=== PATIENT | female | born 1955 | race Caucasian/White ===

== ENCOUNTER 2018-05-27 01:13 | Inpatient (IN) ==
--- NOTE | 2018-05-27 03:47 | ED ---
HPI General Chief complaint: Skin/Abscess/Foreign Body Stated complaint: Poss Bleeding In throat Time Seen by Provider: 05/27/18 03:24 History of Present Illness HPI narrative: 62-year-old female presents to the emergency department complaint of 2 weeks of sensation of foreign body or gross in her throat. No stridor no hoarseness no shortness of breath. Patient states she feels as if she is having bleeding. Patient denies any injury. Patient denies any sinus drainage or epistaxis. No fever chills. Patient denies sore throat. Patient has history of hypertension and valvular heart disease. Patient takes no blood thinning agents. Patient states that symptoms have escalated over the past 24- 48 hours and she is actually coughed up some blood. No pleuritic chest pain no shortness of breath no chest pain no lower extremity pain or swelling. No history of bronchitis or coagulopathy. Patient denies any known thyroid dysfunction. Patient is currently not on antibiotic. Related Data Allergies Allergy/AdvReac Type Severity Reaction Status Date / Time amoxicillin Allergy Severe Rash Unverified 05/27/18 01:16 clavulanic acid Allergy Severe Rash Unverified 05/27/18 01:16 nifedipine Allergy Severe Flushing Unverified 05/27/18 01:16 Review of Systems ROS: all other systems reviewed are negative PMFSH Medical History Medical History Aortic valve regurgitation (Acute) Hypertension (Acute) Surgical History Surgical History Hx of tonsillectomy (Acute) Social History Social History Substance History: No History of Abuse Second Hand Smoke Exposure: No Smoking Status: Never smoker How Often Do You Have a Drink Containing Alcohol: Monthly or less Recent Travel in [facility] within the Last 8 Weeks: No Immunization History Tetanus Immunization: Unsure Hx Influenza Vaccine This Season: Yes Exam Narrative Exam Narrative: GENERAL: Well-nourished, well-developed patient. SKIN: Focused skin assessment warm/dry. HEAD: Normocephalic. EYES: No scleral icterus. No injection or drainage. ENT: Mucous membranes moist airways patent no posterior pharyngeal drainage is identified no epistaxis NECK: Supple, trachea midline. No JVD or lymphadenopathy. CARDIOVASCULAR: Regular rate and rhythm without murmurs, gallops, or rubs. RESPIRATORY: Breath sounds equal bilaterally. No accessory muscle use. GASTROINTESTINAL: Abdomen soft, non-tender, nondistended. MUSCULOSKELETAL: No cyanosis, or edema. BACK: Nontender without obvious deformity. No CVA tenderness. Course Consultations Consultation #1: discussed with DR Chris rodriguezed with DR Pena Time: 08:21 Initial Documented Vital Signs Temperature 98.0 F 05/27/18 01:16 Pulse Rate 97 H 05/27/18 01:16 Respiratory Rate 16 05/27/18 01:16 Blood Pressure 146/83 H 05/27/18 01:16 Pulse Oximetry 95 05/27/18 01:16 Last Documented Vital Signs Temperature 98.0 F 05/27/18 01:16 Pulse Rate 84 05/27/18 07:33 Respiratory Rate 17 05/27/18 07:33 Blood Pressure 138/76 05/27/18 07:33 Pulse Oximetry 100 05/27/18 07:33 Medical Decision Making [facility] Narrative Medical decision making narrative: 61-year-old female presents with complaint of hemoptysis without pleurisy pleuritic chest pain chest pain or shortness of breath and no history of coagulopathy IV access obtained specimens collected and sent for resulting chest x-ray ordered It is now 7:38 AM lab values resulted CT soft tissue neck also resulted patient is identified to have white count of 13,000 with mild left shift bicarb is 30 no anion gap random glucose is elevated at 211 CT is remarkable for tonsillar and epiglottic thickening concerning for inflammatory versus infectious response unlikely malignancy per reading radiologist. Call has been placed to on-call inker Dr. Perez request patient to be admitted to medicine service with consult to him optimally patient would be started on Unasyn and Decadron. Will need to use caution with steroid therapy in view of elevated glucose patient without history of diabetes per patient's report only hypertension and valvular heart disease. Call placed to [facility] service for admission Patient identified to be allergic to amoxicillin will start patient on clindamycin 900 mg ivpb and given one-time dose of Decadron 6 mg IV Medical Screen Exam Complete: Yes Emergency Medical Condition: Yes Differential Diagnosis Differential Diagnosis: Hemoptysis, bronchitis, PE, soft tissue mass/growth, rhinosinusitis, sinusitis; unlikely retropharyngeal abscess also to consider epiglottitis Medical Records Medical records reviewed: Yes I reviewed the patient's medical records. Lab Data Lab results reviewed: Yes I reviewed the patient's lab results. Result diagrams: 05/27/18 03:45 05/27/18 03:45 Lab Results 05/27/18 05/27/18 05/27/18 Range/Units 03:45 03:45 03:45 WBC 13.1 H (4.0-11.0) th/mm3 RBC 4.19 (4.00-5.30) mil/mm3 Hgb 12.6 (11.6-15.3) gm/dL Hct 36.7 (35.0-46.0) % MCV 87.6 (80.0-100.0) fL MCH 30.1 (27.0-34.0) pg MCHC 34.4 (32.0-36.0) % RDW 13.5 (11.6-17.2) % Plt Count 208 (150-450) th/mm3 MPV 9.0 (7.0-11.0) fL Neut % (Auto) 81.2 H (16.0-70.0) % Lymph % (Auto) 9.6 (9.0-44.0) % [place] % (Auto) 6.1 (0.0-8.0) % Eos % (Auto) 2.8 (0.0-4.0) % Baso % (Auto) 0.3 (0.0-2.0) % Neut # (Auto) 10.7 H (1.8-7.7) th/mm3 Lymph # (Auto) 1.3 (1.0-4.8) th/mm3 [place] # (Auto) 0.8 (0.0-0.9) th/mm3 Eos # (Auto) 0.4 (0.0-0.4) th/mm3 Baso # (Auto) 0.0 (0.0-0.2) th/mm3 WBC Differential . Differential Comment Auto diff final PT 10.3 (9.8-11.6) sec INR 1.0 Ratio APTT 24.8 (24.3-30.1) sec Sodium 143 (136-145) meq/L Potassium 3.7 (3.5-5.1) meq/L Chloride 105 (98-107) meq/L Carbon Dioxide 30.3 (21.0-32.0) meq/L Anion Gap 8 (5-15) meq/L BUN 15 (7-18) mg/dL Creatinine 0.69 (0.50-1.00) mg/dL Estimated GFR 86 L (>89) mL/min Random Glucose 211 H (74-106) mg/dL Calcium 8.4 L (8.5-10.1) mg/dL Imaging Data Radiologist's impression: Chest X-Ray 05/27/18 03:30 CONCLUSION: No evidence of acute cardiopulmonary disease. Soft Tissue Neck CT 05/27/18 04:33 CONCLUSION: 1. Tonsillar and epiglottis thickening, nonspecific. Infectious or inflammatory etiologies would be most likely. Neoplasm in the differential but less likely. 2. No abscess or lymphadenopathy. No perceptible foreign body. Discharge Plan Discharge Disposition Patient Disposition: 30 Still Patient Discharge Condition Condition: Stable Discharge Details Diagnosis: Epiglottic lesion Physicians Team ED Provider: Lindsay Lemon Primary Care Provider: Primary Care Mattie Cottrell Attending Provider: Reagan Pena Discharge Interventions Interventions: Vital Signs Last Done: 05/27/18 07:33 Status ED Status: Admitted Patient
--- NOTE | 2018-05-27 03:56 | XR ---
EXAM DATE: 05/27/2018 3:51 AM EDT AGE/SEX: 62 years / Female INDICATIONS: . Cough, shortness of breath and coughing up blood. CLINICAL DATA: This is the patient's initial encounter. Patient reports that signs and symptoms have been present for 2 weeks and indicates a pain score of 0/10. MEDICAL/SURGICAL HISTORY: None. None. COMPARISON: No prior exams available for comparison. FINDINGS: PA and lateral views of the chest demonstrate the lungs to be symmetrically aerated without evidence of mass, infiltrate or effusion. The cardiomediastinal contours are unremarkable. Osseous structures are intact. CONCLUSION: No evidence of acute cardiopulmonary disease. Electronically signed by: Luke Zuniga MD 05/27/2018 3:55 AM EDT
[2018-05-27 04:11] LABS: Baso % (Auto) 0.3 % (0.0-2.0); Eos # (Auto) 0.4 th/mm3 (0.0-0.4); Eos % (Auto) 2.8 % (0.0-4.0); Hematocrit 36.7 % (35.0-46.0); Hemoglobin 12.6 gm/dL (11.6-15.3); Lymph # (Auto) 1.3 th/mm3 (1.0-4.8); Lymph % (Auto) 9.6 % (9.0-44.0); Mean Corpuscular HGB Conc 34.4 % (32.0-36.0); Mean Corpuscular Hemoglobin 30.1 pg (27.0-34.0); Mean Corpuscular Volume 87.6 fL (80.0-100.0); Mono # (Auto) 0.8 th/mm3 (0.0-0.9); Mono % (Auto) 6.1 % (0.0-8.0); Neut # (Auto) 10.7 th/mm3 (1.8-7.7); Neut % (Auto) 81.2 % (16.0-70.0); Platelet Count 208 th/mm3 (150-450); Red Blood Count 4.19 mil/mm3 (4.00-5.30); Red Cell Distribution Width 13.5 % (11.6-17.2); White Blood Count 13.1 th/mm3 (4.0-11.0)
[2018-05-27 04:24] LABS: Activated Partial Thrombo Time 24.8 sec (24.3-30.1); Prothrombin Time 10.3 sec (9.8-11.6)
[2018-05-27 04:29] LABS: Calcium 8.4 mg/dL (8.5-10.1); Carbon Dioxide 30.3 meq/L (21.0-32.0); Potassium 3.7 meq/L (3.5-5.1)
--- NOTE | 2018-05-27 06:36 | CT ---
EXAM DATE: 05/27/2018 6:26 AM EDT AGE/SEX: 62 years / Female INDICATIONS: Sensation of foreign body in throat for two weeks. Began coughing up blood two days ago . CLINICAL DATA: This is the patient's initial encounter. Patient reports that signs and symptoms have been present for 2 weeks and indicates a pain score of 3/10. MEDICAL/SURGICAL HISTORY: Hypertension. Tonsillectomy. RADIATION DOSE: 16.23 CTDI (mGy) COMPARISON: No prior exams available for comparison. TECHNIQUE: Helical acquisition was performed using a multirow detector CT scanner during the adminis tration of 69 ml Omnipaque 350 (iohexol) nonionic water-soluble contrast as a single exam dose. Usi ng automated exposure control and adjustment of the mA and/or kV according to patient size, radiation dose was kept as low as reasonably achievable to obtain optimal diagnostic quality images. DICOM fo rmat image data is available electronically for review and comparison. FINDINGS: Nasopharynx: The nasopharyngeal airway has a normal configuration. No mucosal thickening or mass is seen. Oropharynx: The intrinsic muscles of the tongue are symmetric. There is diffuse tonsillar and epiglo ttis thickening. Larynx: The supraglottic, glottic, and infraglottic structures are intact. Parapharyngeal: The parapharyngeal space is intact. Salivary Glands: The parotid and submandibular glands are intact. Lymph Nodes: No enlarged or necrotic-appearing nodes. Thyroid: Homogeneous enhancement without evidence of nodule. Bones: Unremarkable. Post Contrast: No abnormal areas of enhancement seen. CONCLUSION: 1. Tonsillar and epiglottis thickening, nonspecific. Infectious or inflammatory etiologies would be most likely. Neoplasm in the differential but less likely. 2. No abscess or lymphadenopathy. No perceptible foreign body. Electronically signed by: Luke Zuniga MD 05/27/2018 6:35 AM EDT
[2018-05-27] MEDS ORDERED: Clindamycin 900 mg/NS Premix 900 MG/50 ML PIGGYBACK IV.SIG ONE (07:45)
[2018-05-27] MEDS ORDERED: Sodium Chlor 0.9% Inj 500 ML IV.SIG SCH (08:00)
[2018-05-27] MEDS ORDERED: Vancomycin Consult Pharmacy OTHER PRN (08:38)
[2018-05-27] MEDS ORDERED: Acetaminophen 325 MG Tablet PO PRN (08:40)
[2018-05-27] MEDS: Sod Chloride 0.9% Inj 1,000 ML IV.CONT SCH ×2 (09:14→19:26)
[2018-05-27] MEDS ORDERED: Vancomycin Inj 1,500 MG in Sodium Chlor 0.9% Inj 500 ML IV.SIG ONE (10:00)
[2018-05-27] MEDS ORDERED: Dextrose 50% in Water 50 ML Vial IV.PUSH PRN (10:18)
[2018-05-27] MEDS ORDERED: amLODIPine 10 MG Tablet PO SCH ×2 (10:30→21:00)
--- NOTE | 2018-05-27 10:33 | P.HPIM ---
History of Present Illness Primary Care Physician: No Primary Care Physician Chief Complaint: Difficulty swallowing History of Present Illness: The patient is a 62-year-old female with past medical history significant for hypertension and allergies who is presenting to the hospital with throat irritation. The patient says that about 3 weeks ago she developed difficulty swallowing. She had some irritation with eating and drinking but is currently able to eat and drink. She thought it was postnasal drip, as she has a history of that. She denies any pain with the difficulty swallowing. She denies any associated shortness of breath. She has not had any fevers. She denies any night sweats. She does endorse decreased appetite. She thinks she may have lost some weight recently. She said that she forced herself to spit up yesterday and she said she spit up blood on a couple of occasions. She says she has not spit up blood since last night. She has been ambulating well. She denies any problems with bowel movements or urination. She does say that sometimes she wakes up in the middle of the night and realizes that she stopped breathing. She says this has been going on for about 6 months. Inpatient Certification: I certify that the inpatient services were ordered in accordance with Medicare regulations governing the order. This includes certification that hospital inpatient services are reasonable and necessary and in the case of services not specified as inpatient-only under 42 CFR 419.22(n), that they are appropriately provided as inpatient services in accordance to with the 2-midnight benchmark under 43 CFR 412.3(e) Estimated Total Length of Stay (Days): 2 Plans for Post Hospital Care: Home Review of Systems All other systems reviewed negative except as [facility] - History History Provided By: Patient - Medical History Medical History: Medical History (Last Updated 05/27/18 @ 10:26 by Reagan Pena DO) Aortic valve regurgitation Environmental allergies Hypertension - Surgical History Surgical History: Surgical History (Last Reviewed 05/27/18 @ 03:46 by Lindsay Lemon MD) Hx of tonsillectomy - Family History Family History: Family History (Last Updated 05/27/18 @ 10:26 by Reagan Pena DO) Other CAD (coronary artery disease) Diabetes Hypertension Leukemia Rheumatic fever - Tobacco History Second Hand Smoke Exposure: No Smoking Status: Never smoker - Alcohol History How Often Do You Have a Drink Containing Alcohol: 2 to 3 times a week - Substance Use History Substance History: No History of Abuse - Travel History Recent Travel in the [place] Within the Last 8 Weeks: No - Immunization History Tetanus Immunization: Unsure Hx Influenza Vaccine This Season: Yes Medications and Allergies Active Medications: Active Medications Acetaminophen (Tylenol) 650 mg PO Q4H PRN PRN Reason: Temp > 100.4 Dexamethasone Sodium Phosphate (Decadron Inj) 4 mg IV.PUSH Q8HR RHIANNON Dextrose (D50w Vial) 50 ml IV.PUSH UNSCH PRN PRN Reason: PER HYPOGLYCEMIA PROTOCOL Glucagon (Glucagon Inj) 1 mg OTHER PRN PRN PRN Reason: for Hypoglycemia Protocol Sodium Chloride (Ns Inj) 500 mls @ 0 mls/hr IV.SIG BOLUS RHIANNON Last Admin: 05/27/18 08:12 Dose: 1,000 mls/hr Vancomycin HCl 1,500 mg/ (Sodium Chloride) 515 mls @ 257.5 mls/hr IV.SIG ONCE ONE Stop: 05/27/18 11:59 Sodium Chloride (Ns Inj) 1,000 mls @ 100 mls/hr IV.CONT .Q10H RHIANNON Stop: 05/28/18 04:44 Last Admin: 05/27/18 09:14 Dose: 100 mls/hr Ceftriaxone Sodium 1,000 mg/ (Sodium Chloride) 100 mls @ 200 mls/hr IV.SIG Q12H RHIANNON Insulin Aspart (Novolog Insulin Correctional Sugar Inj) 0 unit SQ ACHS RHIANNON; Protocol Pharmacy Profile Note (Vancomycin Consult Pharmacy) 1 each OTHER UNSCH PRN PRN Reason: Pharmacy to dose Allergies Allergy/AdvReac Type Severity Reaction Status Date / Time amoxicillin Allergy Severe Rash Unverified 05/27/18 01:16 clavulanic acid Allergy Severe Rash Unverified 05/27/18 01:16 nifedipine Allergy Severe Flushing Unverified 05/27/18 01:16 Home Medications Medication Instructions Recorded Confirmed Type amlodipine 10 mg PO DAILY 05/27/18 05/27/18 History loratadine 10 mg PO DAILY 05/27/18 05/27/18 History metoprolol tartrate 100 mg PO QDRHS 05/27/18 05/27/18 History Exam Vital signs: Vital Signs 05/27/18 01:16 05/27/18 01:19 05/27/18 03:50 Temperature 98.0 F Pulse Rate 97 H 90 76 Respiratory Rate 16 16 16 Blood Pressure 146/83 H 144/85 H 126/67 Pulse Oximetry 95 96 96 05/27/18 07:33 05/27/18 09:58 Temperature Pulse Rate 84 71 Respiratory Rate 17 17 Blood Pressure 138/76 141/71 H Pulse Oximetry 100 Intake & Output 05/26/18 05/27/18 05/27/18 18:59 06:59 18:59 Weight 99.79 kg Narrative: GENERAL: Well-nourished, well-developed patient. SKIN: Focused skin assessment warm/dry. HEENT: No epistaxis noted. Cobblestoning in the oropharynx as well as edema noted. NECK: Supple, trachea midline. No JVD or lymphadenopathy. CARDIOVASCULAR: Regular rate and rhythm without murmurs, gallops, or rubs. RESPIRATORY: Breath sounds equal bilaterally. No accessory muscle use. GASTROINTESTINAL: Abdomen soft, non-tender, nondistended. MUSCULOSKELETAL: No cyanosis, or edema. BACK: Nontender without obvious deformity. No CVA tenderness. NEURO: No gross deficits. Results - Labs CBC & Chem 7: 05/27/18 03:45 05/27/18 03:45 Labs: Short CBC 05/27/18 Range/Units 03:45 WBC 13.1 H (4.0-11.0) th/mm3 Hgb 12.6 (11.6-15.3) gm/dL Hct 36.7 (35.0-46.0) % Plt Count 208 (150-450) th/mm3 BMP 05/27/18 03:45 Sodium 143 Potassium 3.7 Chloride 105 Carbon Dioxide 30.3 BUN 15 Creatinine 0.69 Calcium 8.4 L - Imaging Impressions Chest X-Ray 05/27/18 03:30 CONCLUSION: No evidence of acute cardiopulmonary disease. Soft Tissue Neck CT 05/27/18 04:33 CONCLUSION: 1. Tonsillar and epiglottis thickening, nonspecific. Infectious or inflammatory etiologies would be most likely. Neoplasm in the differential but less likely. 2. No abscess or lymphadenopathy. No perceptible foreign body. Caprini VTE Risk Assessment Caprini VTE Risk Assessment: Moderate/High Risk (score >= 2) Caprini Risk Assessment Model: Point Value = 1 Point Value = 2 Point Value = 3 Point Value = 5 Age 41-60 Minor surgery BMI > 25 kg/m2 Swollen legs Varicose veins or History of unexplained or recurrent spontaneous Oral contraceptives or hormone replacement Sepsis (< 1 month) Serious lung disease, including pneumonia (< 1 month) Abnormal pulmonary function Acute myocardial infarction Congestive heart failure (< 1 month) History of inflammatory bowel disease Medical patient at bed rest Age 61-74 Arthroscopic surgery Major open surgery (> 45 min) Laparoscopic surgery (> 45 min) Malignancy Confined to bed (> 72 hours) Immobilizing plaster cast Central venous access Age >= 75 History of VTE Family history of VTE Factor V Leiden Prothrombin [id number] Lupus anticoagulant Anticardiolipin antibodies Elevated serum homocysteine Heparin-induced thrombocytopenia Other congenital or acquired thrombophilia Stroke (< 1 month) Elective arthroplasty Hip, pelvis, or leg fracture Acute spinal cord injury (< 1 month) Prophylaxis Regimen: Total Risk Factor Score Risk Level Prophylaxis Regimen 0-1 Low Early ambulation 2 Moderate Order ONE of the following: *Sequential Compression Device (SCD) *Heparin 5000 units SQ BID 3-4 Higher Order ONE of the following medications: *Heparin 5000 units SQ TID *Enoxaparin/Lovenox 40 mg SQ daily (WT < 150 kg, CrCl > 30 mL/min) *Enoxaparin/Lovenox 30 mg SQ daily (WT < 150 kg, CrCl > 10-29 mL/min) *Enoxaparin/Lovenox 30 mg SQ BID (WT < 150 kg, CrCl > 30 mL/min) AND/OR *Sequential Compression Device (SCD) 5 or more Highest Order ONE of the following medications: *Heparin 5000 units SQ TID (Preferred with Epidurals) *Enoxaparin/Lovenox 40 mg SQ daily (WT < 150 kg, CrCl > 30 mL/min) *Enoxaparin/Lovenox 30 mg SQ daily (WT < 150 kg, CrCl > 10-29 mL/min) *Enoxaparin/Lovenox 30 mg SQ BID (WT < 150 kg, CrCl > 30 mL/min) AND *Sequential Compression Device (SCD) Assessment and Plan - Plan Epiglottitis/ Sepsis The pt presented presented with difficulty swallowing and had an episode of coughing up blood. CT showed: Tonsillar and epiglottis thickening, nonspecific; Infectious or inflammatory etiologies would be most likely; Neoplasm in the differential but less likely. ENT was contacted by the ED and recommended antibiotics and steroids. Pt with leukocytosis and was tachycardic upon arrival. Currently on room air. -change antibiotics to IV vancomycin and ceftriaxone. -continue IV Decadron. -ENT consult pending. -swallow eval. -IVFs. -pain control as needed. -follow cultures. -monitor in the ICU for now. HTN Chronic. -resume home meds including amlodipine and metoprolol. -Vasotec as needed. Hyperglycemia Possibly a stress reaction. -check an A1c. -insulin sliding scale as on steroids. PPx: SCDs
[2018-05-27] MEDS ORDERED: Loratadine 10 MG Tablet PO SCH ×2 (10:45→21:00)
[2018-05-27] MEDS: Insulin NovoLOG Aspart Correctional Sugar Inj SQ SCH ×3 (13:17→20:25)
[2018-05-27 17:13] LABS: Hemoglobin A1c 6.9 % (4.3-6.0)
[2018-05-27] MEDS ORDERED: Metoprolol Tartrate 100 MG Tablet PO SCH (21:00)
[2018-05-28 04:09] LABS: Baso % (Auto) 0.1 % (0.0-2.0); Hematocrit 34.8 % (35.0-46.0); Hemoglobin 11.8 gm/dL (11.6-15.3); Lymph # (Auto) 0.8 th/mm3 (1.0-4.8); Lymph % (Auto) 6.7 % (9.0-44.0); Mean Corpuscular Hemoglobin 29.5 pg (27.0-34.0); Mean Corpuscular Volume 86.7 fL (80.0-100.0); Mean Platelet Volume 8.8 fL (7.0-11.0); Mono # (Auto) 0.3 th/mm3 (0.0-0.9); Mono % (Auto) 2.2 % (0.0-8.0); Neut # (Auto) 11.4 th/mm3 (1.8-7.7); Platelet Count 233 th/mm3 (150-450); Red Blood Count 4.02 mil/mm3 (4.00-5.30); Red Cell Distribution Width 13.4 % (11.6-17.2); White Blood Count 12.6 th/mm3 (4.0-11.0)
[2018-05-28 04:33] LABS: Albumin 3.3 g/dL (3.4-5.0); Anion Gap 11 meq/L (5-15); Aspartate Aminotransferase 9 U/L (15-37); Blood Urea Nitrogen 14 mg/dL (7-18); Calcium 8.9 mg/dL (8.5-10.1); Carbon Dioxide 25.2 meq/L (21.0-32.0); Chloride 104 meq/L (98-107); Glomerular Filtration Rate Greater Than 89 mL/min (>89); Glucose,Random 238 mg/dL (74-106); Sodium 140 meq/L (136-145)
[2018-05-28 04:34] LABS: Alanine Aminotransferase 22 U/L (10-53)
[2018-05-28 04:36] LABS: Alkaline Phosphatase 74 U/L (45-117); Total Protein 7.2 g/dL (6.4-8.2)
[2018-05-28] MEDS ORDERED: Vancomycin Inj 1,500 MG in Sodium Chlor 0.9% Inj 500 ML IV.SIG SCH (06:00)
[2018-05-28] MEDS: Insulin NovoLOG Aspart Correctional Sugar Inj SQ SCH ×2 (08:49→12:37)
[2018-05-28] MEDS ORDERED: Metoprolol Tartrate 100 MG Tablet PO SCH (09:00)
--- NOTE | 2018-05-28 11:46 | P.PNIM ---
Subjective Interval history: The pt wanted to go home. She said she does not follow with doctors. She denies a history of diabetes. She has been eating. Discussed with nursing. Physical Exam Vital signs: Vital Signs 05/27/18 12:25 05/27/18 12:41 05/27/18 16:00 Temperature 98 F 98 F 98 F Pulse Rate 87 Respiratory Rate 18 Blood Pressure 121/68 121/68 158/84 H Pulse Oximetry 98 98 05/27/18 17:11 05/27/18 19:15 05/27/18 20:00 Temperature 98.0 F Pulse Rate 96 H Respiratory Rate 26 H Blood Pressure 126/60 Pulse Oximetry 97 97 97 05/28/18 00:00 05/28/18 04:00 05/28/18 08:00 Temperature 97.9 F 97.8 F 98.1 F Pulse Rate 76 67 78 Respiratory Rate 23 20 22 Blood Pressure 98/68 L 117/62 122/65 Pulse Oximetry 97 99 99 Intake & Output 05/27/18 05/28/18 05/28/18 18:59 06:59 18:59 Intake Total 2415 / 2415 1100 / 1100 530 / 530 Balance 2415 / 2415 1100 / 1100 530 / 530 Weight 101.7 kg 98.8 kg Intake: IV 1215 / 1215 1100 / 1100 530 / 530 NS Inj 1,000 ML @ 100 mls/hr IV 1000 / 1000 .CONT .Q10H RHIANNON Rx#:[id number] Cleocin 900 mg/NS Premix 900 mg 50 / 50 In 50 ml @ 100 mls/hr IV.SIG ONCE ONE Rx#:[id number] Levaquin 750 mg Premix Inj 150 150 / 150 ML @ 100 mls/hr IV.SIG Q24H RHIANNON Rx#:[id number] NS Inj 500 ML @ Wide Open IV. 500 / 500 SIG BOLUS RHIANNON Rx#:[id number] Vancomycin Inj 1,500 MG In NS 515 / 515 Inj 500 ML @ 257.5 mls/hr IV. SIG ONCE ONE Rx#:[id number] Vancomycin Inj 1,500 MG In NS 530 / 530 Inj 500 ML @ 265 mls/hr IV.SIG Q18H RHIANNON Rx#:[id number] Rocephin Inj 1,000 MG In NS Inj 100 / 100 100 ML @ 200 mls/hr IV.SIG Q12H RHIANNON Rx#:[id number] Oral 1200 / 1200 Other: # Voids 6 4 Date of Last Bowel Movement 05/28/18 Weight On Admission 101.7 kg Narrative: GENERAL: Well-nourished, well-developed patient. SKIN: Focused skin assessment warm/dry. HEENT: No epistaxis noted. Cobblestoning in the oropharynx as well as edema noted. NECK: Supple, trachea midline. No JVD or lymphadenopathy. CARDIOVASCULAR: Regular rate and rhythm without murmurs, gallops, or rubs. RESPIRATORY: Breath sounds equal bilaterally. No accessory muscle use. GASTROINTESTINAL: Abdomen soft, non-tender, nondistended. MUSCULOSKELETAL: No cyanosis, or edema. BACK: Nontender without obvious deformity. No CVA tenderness. NEURO: No gross deficits. Results - Labs CBC & Chem 7: 05/28/18 03:41 05/28/18 03:41 Laboratory Results - last 24 hr 05/27/18 05/27/18 05/27/18 03:45 12:18 18:09 WBC RBC Hgb Hct MCV MCH MCHC RDW Plt Count MPV Neut % (Auto) Lymph % (Auto) [place] % (Auto) Eos % (Auto) Baso % (Auto) Neut # (Auto) Lymph # (Auto) [place] # (Auto) Eos # (Auto) Baso # (Auto) WBC Differential Differential Comment Sodium Potassium Chloride Carbon Dioxide Anion Gap BUN Creatinine Estimated GFR POC Glucose 229 H 277 H Random Glucose Hemoglobin A1c 6.9 H Calcium Total Bilirubin AST ALT Alkaline Phosphatase Total Protein Albumin 05/27/18 05/27/18 05/28/18 20:07 23:47 03:41 WBC 12.6 H RBC 4.02 Hgb 11.8 Hct 34.8 L MCV 86.7 MCH 29.5 MCHC 34.0 RDW 13.4 Plt Count 233 MPV 8.8 Neut % (Auto) 91.0 H Lymph % (Auto) 6.7 L [place] % (Auto) 2.2 Eos % (Auto) 0.0 Baso % (Auto) 0.1 Neut # (Auto) 11.4 H Lymph # (Auto) 0.8 L [place] # (Auto) 0.3 Eos # (Auto) 0.0 Baso # (Auto) 0.0 WBC Differential . Differential Comment Auto diff final Sodium Potassium Chloride Carbon Dioxide Anion Gap BUN Creatinine Estimated GFR POC Glucose 326 H 269 H Random Glucose Hemoglobin A1c Calcium Total Bilirubin AST ALT Alkaline Phosphatase Total Protein Albumin 05/28/18 05/28/18 03:41 08:39 WBC RBC Hgb Hct MCV MCH MCHC RDW Plt Count MPV Neut % (Auto) Lymph % (Auto) [place] % (Auto) Eos % (Auto) Baso % (Auto) Neut # (Auto) Lymph # (Auto) [place] # (Auto) Eos # (Auto) Baso # (Auto) WBC Differential Differential Comment Sodium 140 Potassium 4.0 Chloride 104 Carbon Dioxide 25.2 Anion Gap 11 BUN 14 Creatinine 0.65 Estimated GFR Greater than 89 POC Glucose 230 H Random Glucose 238 H Hemoglobin A1c Calcium 8.9 Total Bilirubin 0.3 AST 9 L ALT 22 Alkaline Phosphatase 74 Total Protein 7.2 Albumin 3.3 L Microbiology 05/27/18 07:55 Blood - Peripheral Aerobic Blood Culture - Preliminary No growth in 1 day 05/27/18 07:55 Blood - Peripheral Anaerobic Blood Culture - Preliminary No growth in 1 day 05/27/18 07:50 Blood - Peripheral Aerobic Blood Culture - Preliminary No growth in 1 day 05/27/18 07:50 Blood - Peripheral Anaerobic Blood Culture - Preliminary No growth in 1 day Assessment and Plan - Plan Epiglottitis/ Sepsis The pt presented presented with difficulty swallowing and had an episode of coughing up blood. CT showed: Tonsillar and epiglottis thickening, nonspecific; Infectious or inflammatory etiologies would be most likely; Neoplasm in the differential but less likely. ENT was contacted by the ED and recommended antibiotics and steroids. Pt with leukocytosis and was tachycardic upon arrival. Currently on room air. -change antibiotics to IV vancomycin and ceftriaxone. Will d/c on clindamycin with probiotics. -continue IV Decadron. Switch to PO on discharge. -ENT consult appreciated. Will follow up in one week. -speech therapy following. On soft diet. -IVFs. -follow cultures. HTN Chronic. -resume home meds including amlodipine and metoprolol. -Vasotec as needed. DM A1c 6.9%. The pt states she does not plan on following up with doctors. -lifestyle modifications. -d/c on metformin as pt will be on Decadron upon discharge. -outpt follow-up. PPx: SCDs Discharge Planning: D/c home with outpt follow-up with ENT
--- NOTE | 2018-05-28 11:48 | MB ---
cc: Anthony Perez MD DATE: 05/28/2018 CHIEF COMPLAINT: Possible epiglottitis. HISTORY OF PRESENT ILLNESS: The patient is a pleasant 62-year-old female with history of 2 weeks of sore throat and foreign body sensation in the throat. This has been improved over the last 24 hours with IV antibiotics and a small course of steroids. However, CT scan was consistent for possible epiglottic thickening. ENT evaluated the airway. PHYSICAL EXAMINATION: GENERAL: The patient is a well adult. Tolerating p.o. without any problems and will tolerate a full conversation without being winded. No drooling. NECK: Full range of motion of the neck. HEENT: Facial examination was essentially benign. However, on flexible fiberoptic laryngoscopy, there was thickening of the lingual tonsil with lymphoid hyperplasia, mainly where it appeared to be in contact with the epiglottis as well, even with full tongue protrusion. Vocal cords were very mobile bilaterally and the airway was patent, once I scoped past the lymphoid hyperplasia. Of note, there was no pus on the lymphoid tissue and erythema or exudate. ASSESSMENT: Inflammatory process of the oropharynx and supraglottic larynx. The patient notes that she has no history of lymphoma and no recent upper respiratory infection. I recommend the patient continue the IV at the antibiotics and since she is stable, she is likely is able to be discharged to home later today if she continues to appear stable. Recommend the patient continue antibiotics for 2 weeks. She is to follow up with ENT in 1 to 2 weeks. I discussed that she may need a biopsy of her lymphoid tissue if this does not appear resolved on the followup examination. Of note, the patient did have high sugars today. She states that her sugars were high after getting IV steroids. She notes that she has no history of diabetes. If the patient is able to tolerate another dose of IV steroids, 10 of Decadron and home on a Medrol Dosepak without any risk of complications from diabetes, that would certainly help speed her recovery. However, I recommend continue with her judgment regarding steroids in light of the possible diabetes picture. The patient knows to continue with antibiotics and follow up in ENT 1-2 weeks or follow up with medical earlier if any worsening of symptoms. The patient is anxious to leave the hospital since she feels relatively well today. MD Reynaldo Ny , 11:13 AM , 11:25 AM
[2018-05-28] MEDS ORDERED: Insulin Detemir Inj 1,000 UNIT/10 ML Vial SQ SCH (21:00)
[2018-05-29] MEDS ORDERED: Pharmacy Ordered Lab Info OTHER ONE (17:45)
== END 2018-05-28 12:49 | disposition home or self-care (01) ==
LOC: NEPC 01:13 → NEDA 08:21 → N03 10:33
PROVIDERS: ADMIT Hospitalist; ATTEND Hospitalist